=== PATIENT | male | born 1990 | race Two or more races ===

== ENCOUNTER 2017-12-07 03:08 | Emergency (ER) | payer MEDICAID, OTHER ==
[~2017-12-07] VITALS: Ht 162.6 cm; Wt 76.5 kg
[2017-12-07 04:24] LABS: BASOPHILS # (AUTO) 0.05 x10^3/uL (0-0.1); BASOPHILS % (AUTO) 0 % (0-1); EOSINOPHILS # (AUTO) 0.24 x10^3/uL (0-0.4); EOSINOPHILS % (AUTO) 2 % (1-7); LYMPHOCYTES # (AUTO) 2.08 x10^3/uL (1-3.4); LYMPHOCYTES % (AUTO) 16 % (22-44); MD NO; MEAN CORPUSCULAR HEMOGLOBIN 31.2 pg (27.5-34.5); MEAN CORPUSCULAR HGB CONC 34.1 g/dL (33.2-36.2); MEAN CORPUSCULAR VOLUME 91.7 fL (81-97); MEAN PLATELET VOLUME 8.8 fL (7.4-10.4); MONOCYTES # (AUTO) 1.01 x10^3/uL (0.2-0.8); MONOCYTES % (AUTO) 8 % (2-9); NEUTROPHILS # (AUTO) 9.67 x10^3/uL (1.8-6.8); NEUTROPHILS % (AUTO) 74 % (42-75); PLATELET COUNT 286 x10^3/uL (130-400); RED BLOOD COUNT 5.04 x10^6/uL (4.38-5.82); RED CELL DISTRIBUTION WIDTH 13.5 % (9.4-14.8)
[2017-12-07 04:26] LABS: ANION GAP 7 mmol/L (5-15); CALCIUM 8.5 mg/dL (8.5-10.1); CHLORIDE 109 mmol/L (98-107); CREATININE 0.63 mg/dL (0.7-1.3)
[2017-12-07 04:27] LABS: ALBUMIN 3.6 g/dL (3.4-5.0)
[2017-12-07 04:53] VITALS: BP 113/67
[2017-12-07] MEDS ORDERED: METHOCARBAMOL 750 MG TABLET ONE (05:09)
[2017-12-07] MEDS ORDERED: KETOROLAC 30 MG/1 ML ONE (05:09)
[2017-12-07] MEDS ORDERED: METHOCARBAMOL 750 MG TABLET PO ONE (05:30)
[2017-12-07] MEDS ORDERED: KETOROLAC 30 MG/1 ML IM ONE (05:30)
== END 2017-12-07 05:16 | disposition home or self-care (01) ==
LOC: ED 05:10
DX: M79.632 Pain in left forearm (principal); R20.2 Paresthesia of skin; M25.532 Pain in left wrist; M79.642 Pain in left hand; F17.200 Nicotine dependence, unspecified, uncomplicated
CPT/HCPCS: 36415; 73090; 73130; 80048; 82040; 85025; 96372; 99285; J1885